=== PATIENT | male | born 1925 | race Caucasian/White ===

== ENCOUNTER → 2017-01-31 | Outpatient (CLI) | payer MEDICARE, OTHER | END | disposition home or self-care (01) | LOC: GMAM 10:24 | PROVIDERS: ATTEND Family Medicine | DX: E53.8 Deficiency of other specified B group vitamins (principal); Z12.5 Encounter for screening for malignant neoplasm of prostate; E78.2 Mixed hyperlipidemia; E55.9 Vitamin D deficiency, unspecified; E03.8 Other specified hypothyroidism; R73.9 Hyperglycemia, unspecified | CPT/HCPCS: 82306; 82607; 84439; 84443; G0103 ==

== ENCOUNTER → 2017-02-14 | Outpatient (CLI) | payer MEDICARE, OTHER ==
--- NOTE | 2017-02-14 17:20 | CT ---
EXAM DESCRIPTION: Chest CT with and without contrast enhancement CLINICAL HISTORY: 89 years, Male, CHEST PAIN, HX OF LUNG CA COMPARISON: May 12, 2015 TECHNIQUE: Thin-section axial CT images are obtained prior to and during during rapid bolus administration of nonionic IV contrast media. Reconstructed MPR images are created and reviewed as well. This exam was performed according to our departmental dose-optimization program, which includes automated exposure control, adjustment of the mA and/or kV according to patient size and/or use of iterative reconstruction technique. FINDINGS: Noncontrast imaging demonstrates an elevated right hemidiaphragm with a large pleural-based mass posterior to the right hilar region with the smaller pleural-based mass noted elsewhere in the right lung. Extensive coronary calcification is noted. These changes represent significant interval change from prior 2014 study. Contrast enhanced examination shows a well expanded and essentially clear left lung except for 2 adjacent small subpleural nodules in the medial left lung base that are in each slightly greater greater than 1 cm in maximal diameter. Small pulmonary metastases are suspected. On the right a large approximate 5 x 7 cm multiloculated pleural-based mass in a right paraspinous region behind the right hilum is present with additional smaller pleural-based nodules consistent with widespread pleural metastatic disease. No significant pleural effusions are seen. Bony destructive changes are not apparent. Numerous small normal to upper normal mediastinal lymph nodes are present and are suspicious for metastatic disease in this patient. Bilateral axillary lymphadenopathy in the upper normal and mildly enlarged category is present bilaterally. The thoracic inlet and superior mediastinum are unremarkable. Mild kyphosis of the dorsal spine with advanced hypertrophic degenerative spurring anteriorly is present. Bony destructive changes are not apparent. IMPRESSION: 1. Large lobulated approximate 7 cm pleural-based right paraspinous mass behind the right hilum consistent with pleural-based metastatic disease with numerous additional small pleural-based nodules in the right hemithorax. 2. 2 small pulmonary nodules in the medial left lung base suspicious for parenchymal metastatic disease. 3. Numerous upper normal and normal mediastinal lymph nodes very suspicious for metastatic disease with additional moderate bilateral axillary adenopathy very suspicious for metastatic disease or lymphomatous transformation with interval change from prior studies. 4. No evidence of bony metastatic disease seen. Electronically signed by: Samuel Hough MD 02/14/2017 5:19 PM CDT
== END | disposition home or self-care (01) ==
LOC: CT 13:34
PROVIDERS: ATTEND Family Medicine
DX: C34.31 Malignant neoplasm of lower lobe, right bronchus or lung (principal)